=== PATIENT | female | born 1955 | race Caucasian/White ===

== ENCOUNTER 2016-07-26 23:19 | Emergency (ER) | payer OTHER ==
[~2016-07-26] VITALS: Ht 154.9 cm; Wt 49.9 kg
[~2016-07-26 23:19] MED LIST: ANTIVERT 25 MG25 MG PO; ATIVAN0.5 MG PO; ATORVASTATIN CA20 MG PO; CALCIUM 600600 M1 PO; CO-Q1060 MG PO; LEXAPRO 20MG M20 MG PO; MAGNESIUM250 M1 PO; OMEGA 31000 MG PO; PEPCID40 MG PO; PROTONIX40 MG PO; VITAMIN B121000 MCG PO; VITAMIN D5000 IU PO; [UNRECOGNIZED DRUG - OTHER] PO
--- NOTE | 2016-07-27 | ED GI/GU/ABDOMINAL COMPLAINT ---
History of Present Illness General Chief Complaint: Abdominal Pain/Flank Pain Stated Complaint: PT C/O ABD,BACK,UPPER CHEST PAIN Source: patient, family Vital Signs & Intake/Output Vital Signs & Intake/Output Vital Signs Date Time Temp Pulse Resp B/P Pulse O2 O2 Flow FiO2 Ox Delivery Rate 07/27 0241 96.3 63 18 99/50 97 Room Air 07/27 0149 Room Air Reconcile Medications Atorvastatin Calcium (Lipitor) 20 MG TABLET 1 TAB PO DAILY CHOLESTEROL ( Reported) Calcium Carbonate (Calcium 600) 600 MG TAB 1 TAB PO DAILY SUPPLEMENT ( Reported) CHOLECALCIFEROL (VITAMIN D3) (Vitamin D3) 5,000 UNIT CAPSULE 1 CAP PO EOD SUPPLEMENT (Reported) Coenzyme Q10 (Co-Q10) 60 MG TAB 1 TAB PO DAILY SUPPLEMENT (Reported) Cyanocobalamin (Vitamin B12) 1,000 MCG TAB 1 TAB PO DAILY SUPPLEMENT ( Reported) Escitalopram Oxalate (Lexapro 20MG) 20 MG TABLET 1 TAB PO DAILY MENTAL HEALTH (Reported) Fish Oil ([place] 3) 1,000 MG SGL 1 CAP PO DAILY SUPPLEMENT (Reported) Garlic (Garlic-X) (Unknown Strength) TAB (Unknown Dose) PO PRN SUPPLEMENT ( Reported) Hyoscyamine (Levsin) 0.125 MG TABLET 1 TAB PO Q4 PRN ABDOMINAL PIAN Lorazepam (Ativan) 0.5 MG TAB 0.5 TAB PO PRN ANXIETY (Reported) Magnesium 250 MG TABLET 1 TAB PO DAILY SUPPLEMENT (Reported) Pantoprazole Sodium (Protonix) 40 MG TABLET.DR 1 TAB PO DAILY PRN ACID REFLUX HPI: 60/F with past medical history of GERD who presented to [place] ED complaining of 9/10, sharp, constant, epigastric abdominal pain that started 6 PM after dinner meal. The pain radiates to her back and up substernally. She stated that her pain is associated with nausea and one episode of nonbloody vomiting. Patient does not have dysuria fever, chills, diarrhea or constipation, she also denies shortness breath, palpitations, or cough. Patient does not smoke and use no alcohol. (CANDIE CHACON,ISMAIL) General Source: old records Exam Limitations: no limitations Allergies Coded Allergies: Sulfa (Sulfonamide Antibiotics) (RASH ALL OVER BODY 07/27/16) Triage Nurses Notes Reviewed? yes ? N Is pt currently ? No (MARY ORDAZ MD) Past History Medical History Neurological: TRIGEMINAL NEURALGIA Cardiovascular: hyperlipidemia Musculoskeletal: osteoporosis Psychiatric: anxiety Psychosocial History What is your primary language Citizen Of [place] (ANTONI SCHREIBER MD) Medical History Any Pertinent Medical History? see below for history Surgical History Surgical History: non-contributory Psychosocial History Tobacco Use: Quit >30 days ago ETOH Use: denies use Illicit Drug Use: denies illicit drug use Family History Hx Contributory? No (MARY ORDAZ MD) Review of Systems Review of Systems Constitutional: Denies: chills. Respiratory: Denies: cough, orthopnea, short of breath, sputum production. Cardiovascular: Denies: chest pain, edema, orthopena, palpitations, peripheral edema, syncope. GI: Reports: nausea, vomiting. Denies: abdominal pain, constipation, diarrhea, distention, bloody stool. Genitourinary: Denies: dysuria. Skin: Denies: rash. (ANTONI SCHREIBER MD) Review of Systems Constitutional: Reports: no symptoms. EENTM: Reports: no symptoms. Respiratory: Reports: no symptoms. Cardiovascular: Reports: see HPI, chest pain. GI: Reports: see HPI, abdominal pain. Genitourinary: Reports: no symptoms. Musculoskeletal: Reports: see HPI, back pain. Skin: Reports: no symptoms. Neurological/Psychological: Reports: no symptoms. Hematologic/Endocrine: Reports: no symptoms. Immunologic/Allergic: Reports: no symptoms. All Other Systems: Reviewed and Negative (MARY ORDAZ MD) Physical Exam Physical Exam General Appearance: well developed/nourished, no apparent distress, alert, awake Head: atraumatic, normal appearance, evidence of injury Eyes: Bilateral: PERRL, EOMI. Ears, Nose, Throat, Mouth: hearing grossly normal, moist mucous membrane (CANDIE CHACON,ISCOIL) Physical Exam General Appearance: well developed/nourished, alert, awake, anxious, moderate distress Head: atraumatic, normal appearance Eyes: Bilateral: PERRL, EOMI, other (ANICTERIC). Ears, Nose, Throat, Mouth: hearing grossly normal, moist mucous membrane Neck: normal inspection, supple, full range of motion, NO jvd Respiratory: normal breath sounds, chest non-tender, no respiratory distress, lungs clear Cardiovascular: regular rate/rhythm, normal peripheral pulses Gastrointestinal: normal bowel sounds, soft, non-tender, no organomegaly, NO REBOUND OR GUARDING. nO [place] SIGN Back: normal inspection, normal range of motion, NO cva TENDERNESS Extremities: normal range of motion Neurologic/Psych: no motor/sensory deficits, awake, alert, oriented x 3, normal gait, normal mood/affect Skin: intact, normal color, warm/dry Core Measures ACS in differential dx? Yes ASA ordered for poss ACS? No-ACS ruled out Severe Sepsis Present: No Septic Shock Present: No (SUSHMA CHACON,MARY Ortiz) Progress Plan of Care: Orders Procedure Date/time Status TROPONIN LEVEL 07/27 Complete LIPASE 07/27 Complete COMPREHENSIVE METABOLIC PANEL 07/27 Complete CBC WITHOUT DIFFERENTIAL 07/27 Complete AMYLASE 07/27 Complete EKG 07/27 Active Laboratory Tests 07/27/16 0050: Anion Gap 10, Estimated GFR > 60, BUN/Creatinine Ratio 27.1 H, Glucose 105 H, Calcium 9.5, Total Bilirubin 0.3, AST 24, ALT 41, Alkaline Phosphatase 42, Troponin I < 0.01, Total Protein 6.8, Albumin 3.9, Globulin 2.9, Albumin/ Globulin Ratio 1.3, Amylase 39, Lipase 61, CBC w Diff NO MAN DIFF REQ, RBC 4.11 L, MCV 84.6, MCH 28.5, RDW 12.9, MPV 7.9, Gran % 48.1, Lymphocytes % 35.3, Monocytes % 9.9 H, Eosinophils % 6.1 H, Basophils % 0.6, Absolute Granulocytes 2.5, Absolute Lymphocytes 1.8, Absolute Monocytes 0.5, Absolute Eosinophils 0.3, Absolute Basophils 0, PUBS MCHC 33.7 Differential Diagnosis: biliary colic, cholecystitis, diverticulitis, gastritis, hepatitis, ischemic bowel, inflamm bowel dis, kidney stone, pancreatitis, peptic ulcer, PUD/GERD, UTI/pyelo Diagnostic Imaging: Viewed by Me: CT Scan. Discussed w/RAD: CT Scan. Radiology Impression: PATIENT: RADHIKA SUMMERS PRESENT AGE: 60 PATIENT ACCOUNT NO: [id number] : 53 LOCATION: [facility] ORDERING PHYSICIAN: MARY ORDAZ MD SERVICE DATE: 07/27/16 EXAM TYPE: CAT - CT ABD & PELVIS W IV CONTRAST EXAMINATION: CT ABDOMEN AND PELVIS WITH CONTRAST CLINICAL INFORMATION: Epigastric pain radiating to the back and chest. COMPARISON: None. TECHNIQUE: Multidetector volumetric imaging was performed of the abdomen and pelvis before and after the IV administration of 90 mL of Optiray 320 intravenous contrast. Sagittal and coronal reformatted images were obtained on the technologist's workstation. DLP: 242 mGy-cm. FINDINGS: LUNG BASES: The visualized lung bases are unremarkable. LIVER, GALLBLADDER, AND BILIARY TREE: The liver is normal in size, shape, and attenuation. There is a 0.8 cm hypoattenuating lesion in segment 6 of the liver. No biliary ductal dilatation is present. The gallbladder is unremarkable with no evidence of radiopaque gallstones, gallbladder wall thickening, or obvious pericholecystic inflammatory changes. PANCREAS: Unremarkable. SPLEEN: Unremarkable. ADRENAL GLANDS: Unremarkable. KIDNEYS AND URETERS: The kidneys are normal in size, shape , and attenuation. No hydronephrosis or hydroureter. There is a 0.3 cm left upper pole renal calculus 6 cm from the posterior axillary line. Probable additional punctate left midpole calculus. BLADDER: Unremarkable. GASTROINTESTINAL TRACT: The stomach and small bowel appear unremarkable. No dilated loops of bowel or evidence of obstruction. Fecalization of the distal ileum suggests slow transit. No colonic wall thickening or inflammatory change. Mild colonic stool burden. No free air or free fluid. ABDOMINAL WALL: No significant hernia is appreciated. LYMPH NODES: Normal. VASCULAR: Unremarkable. PELVIC VISCERA: The uterus and adnexa are unremarkable. OSSEOUS STRUCTURES: No acute or suspicious osseous abnormality. Bilateral pars defects at L5 with grade 1 anterolisthesis of L5 on S1. IMPRESSION: No acute findings. The pancreas appears unremarkable with no adjacent inflammation. Nonobstructing left renal calculi. Hypoattenuating lesion in the liver, too small to fully characterize. DICTATED BY: DEBORAH RAPHAEL MD DATE/TIME DICTATED:07/27/16219 [place] CARPENTER:NIKOS DATE/TIME TRANSCRIBED:07/27/16219 CONFIDENTIAL, DO NOT COPY WITHOUT APPROPRIATE AUTHORIZATION. <Electronically signed in Other Vendor System> SIGNED BY: DEBORAH RAPHAEL MD 07/27/168 Initial ED EKG: NSR, no ST T wave changes Prior EKG: changed Comments: After the GI cocktail pain decreased to a 6 out of 10. Patient have been updated on laboratory data as well as CAT scan results. Patient states the pain is down to a 4 OR 5 out of 10. Patient feels comfortable going home. (SUSHMA CHACON,MARY Ortiz) Departure Departure Condition: Stable Referrals: ANABELA CHACON,ROCKY Stack Departure Forms: Customer Survey General Discharge Information [facility] Departure Disposition: HOME OR SELF CARE Clinical Impression Primary Impression: Upper abdominal pain, unspecified Additional Instructions: DRINK PLENTY OF FLUIDS RETURN IF SYMPTOMS WORSEN OR FOR ANY CONCERNS Prescriptions: Current Visit Scripts Hyoscyamine (Levsin) 1 TAB PO Q4 PRN ABDOMINAL PIAN #20 TAB Resident Co-Sign Statement Statement: ED Attending supervision documentation- [X] I saw and evaluated the patient. I have also reviewed all the pertinent lab results and diagnostic results. I agree with the findings and the plan of care as documented in the Resident's documentation. [X] I have reviewed the ED Record and agree with the Resident's documentation. [] Additions or exceptions (if any) to the Resident's note and plan are summarized below: [Patient presents with a sharp pressure and crampy pain in her epigastric that radiates into her chest and her back. The pain started at approximately 6 PM very shortly after finishing dinner. The patient is been constant. There are no aggravating or mitigating factors. Slight nausea but no vomiting. No diarrhea. No dysuria. No shortness of breath. There are no fevers or chills. There is no dysuria. There is no hematuria. On exam there is no pulsatile mass , no [place] sign, no rebound or guarding. Rovsing sign is negative. Cardiac exam is regular rate and rhythm with no murmurs. Her lungs are clear to auscultation bilaterally. Her EKG is normal sinus rhythm with no ischemic changes. She had slight relief with the GI cocktail. Awaiting blood work. The pain has been constant for 6 hours so if this is a cardiac event expect the troponin to be elevated by this point.] (SUSHMA CHACON,MARY Ortiz) auscultation bilaterally. Her EKG is normal sinus rhythm with no ischemic changes. She had slight relief with the GI cocktail. Awaiting blood work. The pain has been constant for 6 hours so if this is a cardiac event expect the troponin to be elevated by this point.] (SUSHMA CHACON,MARY Ortiz)
[2016-07-27 00:56] LABS: ABSOLUTE BASOPHIL COUNT 0 /CUMM (0.0-0.2); ABSOLUTE EOSINOPHIL COUNT 0.3 /CUMM (0.0-0.7); ABSOLUTE GRANULOCYTE CT 2.5 /CUMM (1.4-6.5); ABSOLUTE LYMPH COUNT 1.8 /CUMM (1.2-3.4); ABSOLUTE MONOCYTE COUNT 0.5 /CUMM (0.10-0.60); BASOPHIL % 0.6 % (0.0-2.0); EOSINOPHIL % 6.1 % (0-5); GRANULOCYTE % 48.1 % (42.2-75.2); HEMATOCRIT 34.8 % (37-47); MEAN CORPUSCULAR HGB 28.5 PG (27.0-31.0); MEAN CORPUSCULAR HGB CONC 33.7 G/DL (33.0-37.0); MEAN CORPUSCULAR VOLUME 84.6 FL (81.0-99.0); MEAN PLATELET VOLUME 7.9 FL (7.4-10.4); PLATELET COUNT 178 /CUMM (130-400); RBC DISTRIBUTION WIDTH 12.9 % (11.5-14.5); RED BLOOD CELL CT 4.11 /CUMM (4.20-5.40); WHITE BLOOD CELL COUNT 5.2 /CUMM (4.8-10.8)
--- NOTE | 2016-07-27 02:28 | CT SCAN REPORT ---
EXAMINATION: CT ABDOMEN AND PELVIS WITH CONTRAST CLINICAL INFORMATION: Epigastric pain radiating to the back and chest. COMPARISON: None. TECHNIQUE: Multidetector volumetric imaging was performed of the abdomen and pelvis before and after the IV administration of 90 mL of Optiray 320 intravenous contrast. Sagittal and coronal reformatted images were obtained on the technologist's workstation. DLP: 242 mGy-cm. FINDINGS: LUNG BASES: The visualized lung bases are unremarkable. LIVER, GALLBLADDER, AND BILIARY TREE: The liver is normal in size, shape, and attenuation. There is a 0.8 cm hypoattenuating lesion in segment 6 of the liver. No biliary ductal dilatation is present. The gallbladder is unremarkable with no evidence of radiopaque gallstones, gallbladder wall thickening, or obvious pericholecystic inflammatory changes. PANCREAS: Unremarkable. SPLEEN: Unremarkable. ADRENAL GLANDS: Unremarkable. KIDNEYS AND URETERS: The kidneys are normal in size, shape, and attenuation. No hydronephrosis or hydroureter. There is a 0.3 cm left upper pole renal calculus 6 cm from the posterior axillary line. Probable additional punctate left midpole calculus. BLADDER: Unremarkable. GASTROINTESTINAL TRACT: The stomach and small bowel appear unremarkable. No dilated loops of bowel or evidence of obstruction. Fecalization of the distal ileum suggests slow transit. No colonic wall thickening or inflammatory change. Mild colonic stool burden. No free air or free fluid. ABDOMINAL WALL: No significant hernia is appreciated. LYMPH NODES: Normal. VASCULAR: Unremarkable. PELVIC VISCERA: The uterus and adnexa are unremarkable. OSSEOUS STRUCTURES: No acute or suspicious osseous abnormality. Bilateral pars defects at L5 with grade 1 anterolisthesis of L5 on S1. IMPRESSION: No acute findings. The pancreas appears unremarkable with no adjacent inflammation. Nonobstructing left renal calculi. Hypoattenuating lesion in the liver, too small to fully characterize.
[2016-07-27] MEDS ORDERED: LEVSIN0.125 M1 PO (02:35)
[2016-07-27 02:41] VITALS: BP 99/50
== END 2016-07-27 02:48 ==
LOC: ERH 23:19
PROVIDERS: Student in an Organized Health Care Education/Training Program
DX: R10.13 Epigastric pain (principal)
CPT/HCPCS: 74177; 93005; 93010; 96374